=== PATIENT | male | born 1965 | race Caucasian/White ===

== ENCOUNTER 2016-07-05 17:09 | Observation (INO) | payer OTHER ==
[2016-07-05] MEDS ORDERED: Sodium Chloride 0.9% 10 ML Syringe FLUSH PRN (17:25)
[2016-07-05] MEDS ORDERED: Aspirin 81 MG Tab.Chew PO ONE (17:25)
[2016-07-05] MEDS ORDERED: Sodium Chloride 0.9% 2.5 ML Syringe FLUSH PRN (17:25)
--- NOTE | 2016-07-05 17:28 | EDM.PDOC ---
ED HPI GENERAL MEDICAL PROBLEM - General Chief Complaint: Chest Pain Stated Complaint: CHEST PAIN Time Seen by Provider: 07/05/16 17:18 - History of Present Illness INITIAL COMMENTS - FREE TEXT/NARRATIVE: HISTORY AND PHYSICAL: History of present illness: Patient's age 50-year-old white male with history of hypertension and is on no current medications who presents with a concern of left hemiparesthesia he states he is not feeding well at work he went home and went to sleep and awoke with numbness and tingling to the left side of his body he states the numbness has improved significantly he still does have some tingling he also complained of some vague chest discomfort without associated shortness of breath nausea vomiting palpitations or diaphoresis. He denies history of CVA or [place] denies diabetes or Review of systems: As per history of present illness and below otherwise all systems reviewed and negative. Past medical history: As per history of present illness and as reviewed below otherwise noncontributory. Surgical history: As per history of present illness and as reviewed below otherwise noncontributory. Social history: No reported history of drug or alcohol abuse. Family history: As per history of present illness and as reviewed below otherwise noncontributory. Physical exam: HEENT: Atraumatic, normocephalic, pupils reactive, negative for conjunctival pallor or scleral icterus, mucous membranes moist, throat clear, neck supple, nontender, trachea midline. Lungs: Clear to auscultation, breath sounds equal bilaterally, chest nontender. Heart: S1S2, regular, negative for clicks, rubs, or JVD. Abdomen: Soft, nondistended, nontender. Negative for masses or hepatosplenomegaly. Negative for costovertebral tenderness. Pelvis: Stable nontender. Genitourinary: Deferred. Rectal: Deferred. Extremities: Atraumatic, negative for cords or calf pain. Neurovascular unremarkable. Neuro: Awake, alert, oriented. Cranial nerves II through XII unremarkable. Cerebellum unremarkable. Motor and sensory unremarkable throughout. Exam nonfocal. Diagnostics: CBC CMP PT/INR troponin chest x-ray and EKG CT brain Therapeutics: IV O2 monitor aspirin 324 mg by mouth Impression: #1 left hemiparesthesia #2 atypical chest pain Definitive disposition and diagnosis as appropriate pending reevaluation and review of above. - Related Data Allergies Allergy/AdvReac Type Severity Reaction Status Date / Time No Known Allergies Allergy Verified 07/05/16 18:05 Home Meds: Home Meds . [No Known Home Meds] 07/05/16 [History] Past Medical History - Past Health History Medical/Surgical History: Denies Medical/Surgical History HEENT History: Reports: None Cardiovascular History: Reports: None Respiratory History: Reports: None Gastrointestinal History: Reports: None Genitourinary History: Reports: None Other Musculoskeletal History: hx carpal tunnel release Neurological History: Reports: None Psychiatric History: Reports: None Endocrine/Metabolic History: Reports: Obesity/BMI 30+ Hematologic History: Reports: None Immunologic History: Reports: None Oncologic (Cancer) History: Reports: None Dermatologic History: Reports: None - Infectious Disease History Infectious Disease History: - Past Surgical History Head Surgeries/Procedures: Reports: None Social & Family History - Tobacco Use Smoking Status *Q: Never Smoker Second Hand Smoke Exposure: No - Recreational Drug Use Recreational Drug Use: No Drug Use in Last 12 Months: No ED ROS GENERAL - Review of Systems Review Of Systems: ROS reveals no pertinent complaints other than HPI. ED EXAM, GENERAL - Physical Exam Exam: See Below (See dictation) Course - Vital Signs Last Recorded V/S: Last Vital Signs Temp 37.0 C 07/05/16 19:12 Pulse 83 07/05/16 19:12 Resp 20 07/05/16 19:12 BP 146/81 H 07/05/16 19:16 Pulse Ox 93 L 07/05/16 19:12 - Orders/Labs/Meds Orders: Active Orders 24 hr Category Date Time Status Cardiac Monitoring [RC] . DIRECTED Care 07/05/16 17:21 Active EKG Documentation Completion [RC] STAT Care 07/05/16 17:21 Active Oxygen Therapy, ED [RC] ASDIRECTED Care 07/05/16 17:21 Active Pulse Oximetry [RC] ASDIRECTED Care 07/05/16 17:21 Active Chest 1V Frontal [CR] Stat Exams 07/05/16 17:25 Taken Head wo Cont [CT] Stat Exams 07/05/16 17:25 Taken Sodium Chloride 0.9% [Normal Saline] 1,000 ml Med 07/05/16 17:30 Active IV STAT Sodium Chloride 0.9% [Saline Flush] Med 07/05/16 17:25 Active 10 ml FLUSH ASDIRECTED PRN Sodium Chloride 0.9% [Saline Flush] Med 07/05/16 17:25 Active 2.5 ml FLUSH ASDIRECTED PRN Saline Lock Insert [OM.PC] Stat Oth 07/05/16 17:21 Ordered Medication Orders Sodium Chloride (Normal Saline) 1,000 mls @ 125 mls/hr IV STAT [facility] Last Admin: 07/05/16 17:45 Dose: 125 mls/hr Sodium Chloride (Saline Flush) 10 ml FLUSH ASDIRECTED PRN PRN Reason: Keep Vein Open Sodium Chloride (Saline Flush) 2.5 ml FLUSH ASDIRECTED PRN PRN Reason: Keep Vein Open Labs: Laboratory Tests 07/05/16 07/05/16 07/05/16 Range/Units 17:45 17:45 17:45 WBC 9.75 (4.0-11.0) K/uL RBC 5.48 (4.50-5.90) M/uL Hgb 16.1 (13.0-17.0) g/dL Hct 48.9 (38.0-50.0) % MCV 89.2 (80.0-98.0) fL MCH 29.4 (27.0-32.0) pg MCHC 32.9 (31.0-37.0) g/dL RDW Std Deviation 45.2 (28.0-62.0) fl RDW Coeff of Perico 14 (11.0-15.0) % Plt Count 280 (150-400) K/uL MPV 9.00 (7.40-12.00) fL Neut % (Auto) 54.9 (48.0-80.0) % Lymph % (Auto) 30.8 (16.0-40.0) % Chambers % (Auto) 9.9 (0.0-15.0) % Eos % (Auto) 4.0 (0.0-7.0) % Baso % (Auto) 0.4 (0.0-1.5) % Neut # (Auto) 5.4 (1.4-5.7) K/uL Lymph # (Auto) 3.0 H (0.6-2.4) K/uL Chambers # (Auto) 1.0 H (0.0-0.8) K/uL Eos # (Auto) 0.4 (0.0-0.7) K/uL Baso # (Auto) 0.0 (0.0-0.1) K/uL Nucleated RBC % 0.0 /100WBC Nucleated RBCs # 0 K/uL INR 0.98 (0.86-1.11) Sodium 140 (136-146) mmol/L Potassium 4.1 (3.5-5.1) mmol/L Chloride 108 (98-110) mmol/L Carbon Dioxide 24 (21-31) mmol/L BUN 13 (6.0-23.0) mg/dL Creatinine 0.9 (0.6-1.5) mg/dL Est Cr Clr Drug Dosing 103.64 mL/min Estimated GFR (MDRD) > 60.0 ml/min Glucose 80 (60-110) mg/dL Calcium 8.8 (8.8-10.8) mg/dL Total Bilirubin 0.4 (0.1-1.5) mg/dL AST 33 (5-40) IU/L ALT 42 (8-54) IU/L Alkaline Phosphatase 67 (40-150) Troponin I (0.0-0.29) NG/ML Total Protein 7.5 (6.0-8.0) g/dL Albumin 3.8 (3.5-5.0) g/dL Globulin 3.7 H (2.0-3.5) g/dL Albumin/Globulin Ratio 1.0 L (1.3-2.8) 07/05/16 Range/Units 17:45 WBC (4.0-11.0) K/uL RBC (4.50-5.90) M/uL Hgb (13.0-17.0) g/dL Hct (38.0-50.0) % MCV (80.0-98.0) fL MCH (27.0-32.0) pg MCHC (31.0-37.0) g/dL RDW Std Deviation (28.0-62.0) fl RDW Coeff of Perico (11.0-15.0) % Plt Count (150-400) K/uL MPV (7.40-12.00) fL Neut % (Auto) (48.0-80.0) % Lymph % (Auto) (16.0-40.0) % Chambers % (Auto) (0.0-15.0) % Eos % (Auto) (0.0-7.0) % Baso % (Auto) (0.0-1.5) % Neut # (Auto) (1.4-5.7) K/uL Lymph # (Auto) (0.6-2.4) K/uL Chambers # (Auto) (0.0-0.8) K/uL Eos # (Auto) (0.0-0.7) K/uL Baso # (Auto) (0.0-0.1) K/uL Nucleated RBC % /100WBC Nucleated RBCs # K/uL INR (0.86-1.11) Sodium (136-146) mmol/L Potassium (3.5-5.1) mmol/L Chloride (98-110) mmol/L Carbon Dioxide (21-31) mmol/L BUN (6.0-23.0) mg/dL Creatinine (0.6-1.5) mg/dL Est Cr Clr Drug Dosing mL/min Estimated GFR (MDRD) ml/min Glucose (60-110) mg/dL Calcium (8.8-10.8) mg/dL Total Bilirubin (0.1-1.5) mg/dL AST (5-40) IU/L ALT (8-54) IU/L Alkaline Phosphatase (40-150) Troponin I < 0.10 (0.0-0.29) NG/ML Total Protein (6.0-8.0) g/dL Albumin (3.5-5.0) g/dL Globulin (2.0-3.5) g/dL Albumin/Globulin Ratio (1.3-2.8) Meds: Medications Generic Name Dose Route Start Last Admin Trade Name Freq PRN Reason Stop Dose Admin Sodium Chloride 1,000 mls @ 125 mls/hr 07/05/16 17:30 07/05/16 17:45 Normal Saline IV 125 mls/hr STAT [facility] Administration Sodium Chloride 10 ml 07/05/16 17:25 Saline Flush FLUSH ASDIRECTED PRN Keep Vein Open Sodium Chloride 2.5 ml 07/05/16 17:25 Saline Flush FLUSH ASDIRECTED PRN Keep Vein Open Discontinued Medications Generic Name Dose Route Start Last Admin Trade Name Freq PRN Reason Stop Dose Admin Aspirin 324 mg 07/05/16 17:25 07/05/16 17:53 Aspirin PO 07/05/16 17:26 324 mg ONETIME ONE Administration Departure - Departure Time of Disposition: 19:22 Disposition: Home, Self-Care 01 Condition: good Clinical Impression: Paresthesia, Atypical chest pain Forms: ED Department Discharge - My Orders Last 24 Hours: My Active Orders 07/05/16 17:21 Cardiac Monitoring [RC] . DIRECTED EKG Documentation Completion [RC] STAT Oxygen Therapy, ED [RC] ASDIRECTED Pulse Oximetry [RC] ASDIRECTED Saline Lock Insert [OM.PC] Stat 07/05/16 17:25 Chest 1V Frontal [CR] Stat Head wo Cont [CT] Stat Sodium Chloride 0.9% [Saline Flush] 10 ml FLUSH ASDIRECTED PRN Sodium Chloride 0.9% [Saline Flush] 2.5 ml FLUSH ASDIRECTED PRN 07/05/16 17:30 Sodium Chloride 0.9% [Normal Saline] 1,000 ml IV STAT - Assessment/Plan Last 24 Hours: My Active Orders 07/05/16 17:21 Cardiac Monitoring [RC] . DIRECTED EKG Documentation Completion [RC] STAT Oxygen Therapy, ED [RC] ASDIRECTED Pulse Oximetry [RC] ASDIRECTED Saline Lock Insert [OM.PC] Stat 07/05/16 17:25 Chest 1V Frontal [CR] Stat Head wo Cont [CT] Stat Sodium Chloride 0.9% [Saline Flush] 10 ml FLUSH ASDIRECTED PRN Sodium Chloride 0.9% [Saline Flush] 2.5 ml FLUSH ASDIRECTED PRN 07/05/16 17:30 Sodium Chloride 0.9% [Normal Saline] 1,000 ml IV STAT
[2016-07-05] MEDS ORDERED: Sodium Chloride 0.9% 1,000 ML IV SCH (17:30)
[2016-07-05 18:31] LABS: CHLORIDE,CL 108 mmol/L (98-110); SODIUM,NA 140 mmol/L (136-146)
[2016-07-05] MEDS ORDERED: Acetaminophen 325 MG Tab PO PRN (20:10)
--- NOTE | 2016-07-05 20:37 | PCM.HP ---
H&P History of Present Illness - General Date of Service: 07/05/16 Admit Problem/Dx: Admission Diagnosis/Problem Admission Diagnosis/Problem Paresthesia Source of Information: Patient History Limitations: Reports: No limitations - History of Present Illness Initial Comments - Free Text/Narative: feeling sluggish and fatigued several days left work early because of squeezing precordaial chest pain and numbness and tingling L arm and somewhat in L leg as well. No weakness nausea sweats Onset of Symptoms: Reports: today, gradual Duration of Symptoms: Reports: Hour(s): Location: Reports: chest, upper extremity, left Quality: Reports: Pressure, Other (numbness l side) Severity: moderate Improves with: Reports: None Worsens with: Reports: None Context: Reports: other (denies unusual effort or stress) Associated Symptoms: Reports: no other symptoms Left Chest/Arm Pain Score (Numeric/FACES): 8 - Related Data Allergies/Adverse Reactions: Allergies Allergy/AdvReac Type Severity Reaction Status Date / Time atorvastatin Allergy Rash Verified 07/05/16 20:27 cephalexin [From Keflex] Allergy Hives Verified 07/05/16 20:24 propranolol [From Inderal [place]] Allergy Rash Verified 07/05/16 20:26 Home Medications: Home Meds . [No Known Home Meds] 07/05/16 [History] Past Medical History - Past Health History Medical/Surgical History: Denies Medical/Surgical History HEENT History: Reports: None Cardiovascular History: Reports: None, Hypertension Respiratory History: Reports: None Gastrointestinal History: Reports: None Genitourinary History: Reports: None Musculoskeletal History: Reports: Fracture Other Musculoskeletal History: hx carpal tunnel release Neurological History: Reports: None Psychiatric History: Reports: None Endocrine/Metabolic History: Reports: Obesity/BMI 30+ Hematologic History: Reports: None Immunologic History: Reports: None Oncologic (Cancer) History: Reports: None Dermatologic History: Reports: None - Infectious Disease History Infectious Disease History: - Past Surgical History Head Surgeries/Procedures: Reports: None Social & Family History - Family History Family Medical History: Noncontributory Neurological: Reports: CVA, TIA Endocrine/Metabolic: Reports: Diabetes, type I (mother treated with tPA for stroke and is ok), Diabetes, type II, Hyperthyroidism - Tobacco Use Smoking Status *Q: Never Smoker Second Hand Smoke Exposure: No - Recreational Drug Use Recreational Drug Use: No Drug Use in Last 12 Months: No H&P Review of Systems - Review of Systems: Review Of Systems: See Below General: Reports: no symptoms HEENT: Reports: no symptoms Pulmonary: Reports: No Symptoms Cardiovascular: Reports: no symptoms, chest pain Gastrointestinal: Reports: No symptoms Genitourinary: Reports: no symptoms Musculoskeletal: Reports: no symptoms Skin: Reports: no symptoms Psychiatric: Reports: no symptoms Neurological: Reports: Paresthesia Hematologic/Lymphatic: Reports: no symptoms Immunologic: Reports: no symptoms Exam - Exam Exam: See Below - Vital Signs Vital Signs: Last Vital Signs Temp 37.0 C 07/05/16 19:12 Pulse 83 07/05/16 19:12 Resp 20 07/05/16 19:12 BP 146/81 H 07/05/16 19:16 Pulse Ox 93 L 07/05/16 19:12 Weight: 168 kg - Exam General: alert HEENT: Posterior pharynx clear (small pharyngeal opening) Neck: other (very fleshy, nothing visible palpable or audible) Lungs: Decreased breath sounds Cardiovascular: regular rate Abdomen: normal bowel sounds, other (morbid obesity) (Male) Exam: Deferred Rectal (Males) Exam: Deferred Back Exam: normal inspection Extremities: other (large but non-pitting shins) Skin: warm, dry Neurological: other (speech clear, face symmetric moves limbs not formally tested further) Neuro Extensive - Mental Status: alert, oriented x3 Psychiatric: normal affect - Patient Data Result Diagrams: 07/05/16 17:45 07/05/16 17:45 *Q Meaningful Use (ADM) - VTE *Q VTE Criteria *Q: - VTE Risk Assess *Q Each Risk Factor Represents 1 Point: Obesity (BMI greater than 30), Abnormal Pulmonary Function (COPD) Total Score 1 Point Risk Factors: 2 - Stroke *Q Stroke Criteria *Q: - AMI *Q AMI Criteria *Q: Problem List Initiated/Reviewed/Updated: Yes Orders Last 24hrs: Active Orders 24 hr Category Date Time Status Patient Status [ADT] Routine ADT 07/05/16 20:10 Active Blood Glucose Check, Bedside [RC] BIDMEALS Care 07/05/16 20:10 Active Cardiac Monitoring [RC] CONTINUOUS Care 07/05/16 20:12 Active EKG Documentation Completion [RC] DAILY Care 07/05/16 20:10 Active Oxygen Therapy [RC] PRN Care 07/05/16 20:10 Active Pulse Oximetry [RC] CONTINUOUS Care 07/05/16 20:12 Active VTE/DVT Education [RC] PER UNIT ROUTINE Care 07/05/16 20:10 Active Vital Signs [RC] Q4H Care 07/05/16 20:10 Active LIPID PANEL [CHEM] Routine Lab 07/05/16 20:22 Ordered TROPONIN I [CHEM] DAILY Lab 07/05/16 20:15 Ordered Acetaminophen [Tylenol] Med 07/05/16 20:10 Active 650 mg PO Q4H PRN Metoprolol Tartrate [Lopressor] Med 07/05/16 21:00 Ordered 25 mg PO Q12HR Rosuvastatin [Crestor] Med 07/05/16 21:00 Ordered 10 mg PO BEDTIME Resuscitation Status Routine Resus Stat 07/05/16 20:10 Ordered Medication Orders Acetaminophen (Tylenol) 650 mg PO Q4H PRN PRN Reason: Pain (Mild 1-3)/fever Sodium Chloride (Normal Saline) 1,000 mls @ 125 mls/hr IV STAT [facility] Last Admin: 07/05/16 17:45 Dose: 125 mls/hr Metoprolol Tartrate (Lopressor) 25 mg PO Q12HR [facility] Rosuvastatin Calcium (Crestor) 10 mg PO BEDTIME [facility] Sodium Chloride (Saline Flush) 10 ml FLUSH ASDIRECTED PRN PRN Reason: Keep Vein Open Sodium Chloride (Saline Flush) 2.5 ml FLUSH ASDIRECTED PRN PRN Reason: Keep Vein Open Assessment/Plan Comment:: add prophyllactic beta shahriar and statin to ASA already given. Check further troponins and ECGs Needs sleep apnea work up. will monitor pulse ox here
[2016-07-05] MEDS: Metoprolol Tartrate 25 MG Tab PO SCH (20:42)
[2016-07-05] MEDS ORDERED: Rosuvastatin 10 MG Tab PO SCH (21:00)
[2016-07-06] MEDS: Metoprolol Tartrate 25 MG Tab PO SCH (10:08)
--- NOTE | 2016-07-06 11:22 | PCM.PN ---
- General Info Date of Service: 07/06/16 Functional Status: Reports: other (still has tingling face hand ) - Review of Systems HEENT: Reports: no symptoms Pulmonary: Reports: no symptoms Cardiovascular: Reports: No Symptoms Gastrointestinal: Reports: No symptoms Genitourinary: Reports: no symptoms Musculoskeletal: Reports: no symptoms Skin: Reports: no symptoms Neurological: Reports: No Symptoms Psychiatric: Reports: no symptoms - Patient Data Vitals - most recent: Last Vital Signs Temp 36.7 C 07/06/16 08:00 Pulse 80 07/06/16 10:08 Resp 16 07/06/16 08:00 BP 125/75 07/06/16 10:08 Pulse Ox 93 L 07/06/16 08:00 Weight - most recent: 168 kg I&O - last 24 hours: Intake & Output 07/05/16 07/06/16 07/06/16 22:59 06:59 14:59 Intake Total 1000 150 Output Total 350 Balance 1000 -200 Lab Results last 24 hrs: Laboratory Results - last 24 hr 07/05/16 07/05/16 07/06/16 Range/Units 20:28 20:34 02:45 POC Glucose 80 (60-110) mg/dL Troponin I < 0.10 < 0.10 (0.0-0.29) NG/ML 07/06/16 Range/Units 08:15 POC Glucose 97 (60-110) mg/dL Troponin I (0.0-0.29) NG/ML Med Orders - Current: Current Medications Acetaminophen (Tylenol) 650 mg PO Q4H PRN PRN Reason: Pain (Mild 1-3)/fever Metoprolol Tartrate (Lopressor) 25 mg PO Q12HR [facility] Last Admin: 07/06/16 10:08 Dose: 25 mg Rosuvastatin Calcium (Crestor) 10 mg PO BEDTIME [facility] Last Admin: 07/05/16 20:43 Dose: 10 mg Sodium Chloride (Saline Flush) 10 ml FLUSH ASDIRECTED PRN PRN Reason: Keep Vein Open Sodium Chloride (Saline Flush) 2.5 ml FLUSH ASDIRECTED PRN PRN Reason: Keep Vein Open Discontinued Medications Aspirin (Aspirin) 324 mg PO ONETIME ONE Stop: 07/05/16 17:26 Last Admin: 07/05/16 17:53 Dose: 324 mg Sodium Chloride (Normal Saline) 1,000 mls @ 125 mls/hr IV STAT [facility] Last Admin: 07/05/16 17:45 Dose: 125 mls/hr - My Orders Last 24 Hours: My Active Orders 07/05/16 20:10 Patient Status [ADT] Routine Blood Glucose Check, Bedside [RC] BIDMEALS Oxygen Therapy [RC] PRN Vital Signs [RC] Q4H Acetaminophen [Tylenol] 650 mg PO Q4H PRN Resuscitation Status Routine 07/05/16 20:12 Pulse Oximetry [RC] CONTINUOUS 07/05/16 20:33 Telemetry Monitoring [Cardiac Monitoring] [RC] Q8H 07/05/16 21:00 Metoprolol Tartrate [Lopressor] 25 mg PO Q12HR Rosuvastatin [Crestor] 10 mg PO BEDTIME 07/06/16 Breakfast Regular Diet [DIET] - Plan Plan:: add prophyllactic beta shahriar and statin to ASA already given. Check further troponins and ECGs Needs sleep apnea work up. will monitor pulse ox here
--- NOTE | 2016-07-06 11:29 | PCM.PN ---
- General Info Date of Service: 07/06/16 - Review of Systems General: Reports: Other (still has some tingling in hand and now mentions L face as well) HEENT: Reports: no symptoms Pulmonary: Reports: no symptoms Cardiovascular: Reports: No Symptoms Gastrointestinal: Reports: No symptoms Genitourinary: Reports: no symptoms Musculoskeletal: Reports: no symptoms Skin: Reports: no symptoms Neurological: Reports: No Symptoms Psychiatric: Reports: no symptoms - Patient Data Vitals - most recent: Last Vital Signs Temp 36.7 C 07/06/16 08:00 Pulse 80 07/06/16 10:08 Resp 16 07/06/16 08:00 BP 125/75 07/06/16 10:08 Pulse Ox 93 L 07/06/16 08:00 Weight - most recent: 168 kg I&O - last 24 hours: Intake & Output 07/05/16 07/06/16 07/06/16 22:59 06:59 14:59 Intake Total 1000 150 Output Total 350 Balance 1000 -200 Lab Results last 24 hrs: Laboratory Results - last 24 hr 07/05/16 07/05/16 07/06/16 Range/Units 20:28 20:34 02:45 POC Glucose 80 (60-110) mg/dL Troponin I < 0.10 < 0.10 (0.0-0.29) NG/ML 07/06/16 Range/Units 08:15 POC Glucose 97 (60-110) mg/dL Troponin I (0.0-0.29) NG/ML Med Orders - Current: Current Medications Acetaminophen (Tylenol) 650 mg PO Q4H PRN PRN Reason: Pain (Mild 1-3)/fever Metoprolol Tartrate (Lopressor) 25 mg PO Q12HR [facility] Last Admin: 07/06/16 10:08 Dose: 25 mg Rosuvastatin Calcium (Crestor) 10 mg PO BEDTIME [facility] Last Admin: 07/05/16 20:43 Dose: 10 mg Sodium Chloride (Saline Flush) 10 ml FLUSH ASDIRECTED PRN PRN Reason: Keep Vein Open Sodium Chloride (Saline Flush) 2.5 ml FLUSH ASDIRECTED PRN PRN Reason: Keep Vein Open Discontinued Medications Aspirin (Aspirin) 324 mg PO ONETIME ONE Stop: 07/05/16 17:26 Last Admin: 07/05/16 17:53 Dose: 324 mg Sodium Chloride (Normal Saline) 1,000 mls @ 125 mls/hr IV STAT [facility] Last Admin: 07/05/16 17:45 Dose: 125 mls/hr - Exam General: alert, oriented HEENT: Pupils equal, Pupils reactive, EOMI, Mucous membr. moist/pink Neck: supple, other (pulses very poorly felt, no bruit heard) Lungs: Clear to auscultation, Normal respiratory effort Cardiovascular: Regular Rate, Regular Rhythm Abdomen: bowel sounds present, soft, no tenderness, no distension (Male) Exam: Deferred, Other Back Exam: normal inspection Skin: warm, dry, intact Neurological: no new focal deficit Psy/Mental Status: alert, normal affect, normal mood - Problem List & Annotations (1) Paresthesia SNOMED Code(s): 70263704 Code(s): R20.2 - PARESTHESIA OF SKIN Status: Acute Priority: High Current Visit: Yes Onset Date: ~07/05/16 - Problem List Review Problem List Initiated/Reviewed/Updated: Yes - My Orders Last 24 Hours: My Active Orders 07/05/16 20:10 Patient Status [ADT] Routine Blood Glucose Check, Bedside [RC] BIDMEALS Oxygen Therapy [RC] PRN Vital Signs [RC] Q4H Acetaminophen [Tylenol] 650 mg PO Q4H PRN Resuscitation Status Routine 07/05/16 20:12 Pulse Oximetry [RC] CONTINUOUS 07/05/16 20:33 Telemetry Monitoring [Cardiac Monitoring] [RC] Q8H 07/05/16 21:00 Metoprolol Tartrate [Lopressor] 25 mg PO Q12HR Rosuvastatin [Crestor] 10 mg PO BEDTIME 07/06/16 Breakfast Regular Diet [DIET] - Assessment Assessment:: persistent L side symptons more suggestive of TIA Will order carotid US - Plan Plan:: add prophyllactic beta shahriar and statin to ASA already given. Check further troponins and ECGs Needs sleep apnea work up. will monitor pulse ox here
--- NOTE | 2016-07-06 14:53 | CT ---
EXAM DATE: 07/05/16 PATIENT'S AGE: 50 Patient: ARTURO HOU Facility: [place], [place] Site . Site : 1965 Study: CT Head [id number] 5:53:55 PM Ordering Physician: Jadyn Mahan Final Report: INDICATION: Pain and dizziness TECHNIQUE: CT head without contrast. COMPARISON: None FINDINGS: CSF spaces: Within normal limits for age. Brain parenchyma: The lyons-white differentiation is normal. No sign of mass, hemorrhage, or midline shift. Skull base and calvarium: The visualized paranasal sinuses and mastoid air cells demonstrate no acute or significant findings. The visualized orbits are grossly unremarkable. No skull fractures. IMPRESSION: Unremarkable noncontrast head CT. Dictated by Zamzam Armendariz MD @ Jul 05 2016 6:14PM (Electronic Signature) Report Signed by Proxy and Original Signed Document filed in the Medical Record. [facility] INSANEJeanine
--- NOTE | 2016-07-06 15:00 | CR ---
EXAM DATE: 07/05/16 PATIENT'S AGE: 50 Patient: ARTURO HOU Facility: [place], [place] Site . Site : 1965 Study: XRay Chest [id number]/30/2017 6:22:39 PM Ordering Physician: Jadyn Mahan Final Report: Indication: Chest pain and shortness of breath Technique: Chest 1 view Comparison: 11/28/2015. Findings/Impression: Cardiovascular and mediastinum: Heart size and vasculature are normal in caliber and appearance. Mediastinum is within normal limits. Lungs and pleural space: Mildly elevated left hemidiaphragm. Mild left basilar subsegmental atelectasis or scarring. No gross consolidation or pleural effusions. Bones and soft tissues: No significant change. Dictated by Ehsan Nice MD @ 07/05/2016 6:57:32 PM Dictated by: Ehsan Nice MD @ 07/05/2016 18:57:37 (Electronic Signature) Report Signed by Proxy and Original Signed Document filed in the Medical Record. [facility]
--- NOTE | 2016-07-06 16:52 | US ---
EXAMINATION: Carotid US with lyons scale and duplex imaging. HISTORY: Persistent left-sided numbness FINDINGS: Ultrasound examination of bilateral cervical carotid arteries was performed using lyons scale and dup duy imaging. Minimal atheromatous disease noted within the carotid arteries. The vertebral arterie s were not well imaged secondary to body habitus. These are the peak velocities in cm per second (systole), right and left respectively, by a comma: CCA (common carotid artery) - 97, 99 ICA (internal carotid artery) - 114, 93 ECA (External carotid artery) - 51, 21 ICA/CCA systolic ratio Right - 1.2 Left - 1.0 IMPRESSION: 1. No significant elevated velocities within the carotid arteries bilaterally to suggest greater chencho n 50% stenosis. 2. The vertebral arteries were not well imaged secondary to body habitus.
[2016-07-06 17:29] VITALS: BP 125/56
--- NOTE | 2016-07-06 18:55 | PCM.DCSUM1 ---
Discharge Summary - Hospital Course Free Text/Narrative:: admitted with increasing fatigue, eventually chest pressure and ttingling numbness L arm and also face and leg - Discharge Data Discharge Date: 07/06/16 Discharge Disposition: Home, Self-Care 01 Condition: Good - Discharge Diagnosis/Problem(s) (1) Paresthesia SNOMED Code(s): 99870472 ICD Code: R20.2 - PARESTHESIA OF SKIN Status: Acute Priority: High Current Visit: Yes Onset Date: ~07/05/16 - Patient Summary/Data Operative Procedure(s) Performed: R shoulder arthroscopy with. 1. SAD. 2. biceps tenotomy. 3. RTCR Consults: Consultations 07/06/16 15:49 Consult to Physician [CONS] Routine Cardiology Recommended Follow-up Testing/Procedures: cardiac stress test with Dr Letty Merrill study - Patient Instructions Diet: Heart Healthy Diet Activity: No Strenuous Activities Driving: Do Not Drive Showering/Bathing: May Shower - Discharge Plan Prescriptions/Med Rec: Aspirin 81 mg PO BRK #120 tab.chew Home Medications: Home Meds Aspirin 81 mg PO BRK #120 tab.chew 07/06/16 [Rx] Forms: ED Department Discharge Referrals: Jann Schafer MD [Ordering Only Provider] - 07/13/16 9:00 am - Discharge Summary/Plan Comment DC Time >30 min.: No - Patient Data Vitals - Most Recent: Last Vital Signs Temp 37.1 C 07/06/16 16:00 Pulse 73 07/06/16 16:00 Resp 16 07/06/16 16:00 BP 125/56 L 07/06/16 16:00 Pulse Ox 95 07/06/16 16:00 Weight - Most Recent: 168 kg I&O - Last 24 hours: Intake & Output 07/06/16 07/06/16 07/06/16 06:59 14:59 22:59 Intake Total 150 Output Total 350 Balance -200 Lab Results - Last 24 hrs: Laboratory Results - last 24 hr 07/05/16 07/05/16 07/06/16 Range/Units 20:28 20:34 02:45 POC Glucose 80 (60-110) mg/dL Troponin I < 0.10 < 0.10 (0.0-0.29) NG/ML 07/06/16 07/06/16 07/06/16 Range/Units 08:15 11:18 17:18 POC Glucose 97 99 107 (60-110) mg/dL Troponin I (0.0-0.29) NG/ML Med Orders - Current: Current Medications Acetaminophen (Tylenol) 650 mg PO Q4H PRN PRN Reason: Pain (Mild 1-3)/fever Metoprolol Tartrate (Lopressor) 25 mg PO Q12HR [facility]OR Last Admin: 07/06/16 10:08 Dose: 25 mg Rosuvastatin Calcium (Crestor) 10 mg PO BEDTIME [facility] Last Admin: 07/05/16 20:43 Dose: 10 mg Sodium Chloride (Saline Flush) 10 ml FLUSH ASDIRECTED PRN PRN Reason: Keep Vein Open Sodium Chloride (Saline Flush) 2.5 ml FLUSH ASDIRECTED PRN PRN Reason: Keep Vein Open Discontinued Medications Aspirin (Aspirin) 324 mg PO ONETIME ONE Stop: 07/05/16 17:26 Last Admin: 07/05/16 17:53 Dose: 324 mg Sodium Chloride (Normal Saline) 1,000 mls @ 125 mls/hr IV STAT [facility] Last Admin: 07/05/16 17:45 Dose: 125 mls/hr *Q Meaningful Use (DIS) - VTE *Q VTE Criteria *Q: - Stroke *Q Stroke Criteria *Q: - AMI *Q AMI Criteria *Q:
--- NOTE | 2016-07-07 00:31 | CONS ---
DATE OF CONSULTATION: DATE OF : 1965 PRIMARY CARE PHYSICIAN: None PCP REASON FOR CONSULTATION: Chest pain. HISTORY OF PRESENT ILLNESS: This is a 50-year-old male, morbid obesity, presented to the emergency room because of the chest pain. It started when he was late watching TV on the left- sided chest wall, radiating to his shoulder and his arm, and also his left neck and left face. He feels a feeling tingling his left arm as well, lasting for 2 to 3 hours. The pain that he described was more like squeezing in nature. He had a similar episode about less than 10, like one week prior when he was resting as well. No shortness of breath. No sweating. No heart racing, and then he came to the emergency room. Troponin has been negative so far. EKG was done and did not show any changes. PAST MEDICAL HISTORY: No history of hypertension, diabetes, or high cholesterol. FAMILY HISTORY: His mother had a history of diabetes, heart attack, and also a history of stroke. ALLERGIES: He is allergic to atorvastatin, cephalexin, and propranolol . CURRENT MEDICATIONS: Including metoprolol 25 q.12 hours, Crestor 10 mg at bedtime, and aspirin 324 was given. PHYSICAL EXAMINATION: VITAL SIGNS: Blood pressure 158/88, coming down to 125/75; heart rate of 82; temperature 36.8; and O2 saturation 97 on room air. HEENT: Not pale, no jaundice. NECK: No JVD. HEART: Normal S1, S2. No murmur. LUNGS: Clear. No crackles. No wheezing. ABDOMEN: Soft, nontender. No hepatosplenomegaly. No rebound tenderness. EXTREMITIES: Legs, no edema. Good dorsalis pedis. INVESTIGATION: EKG on 07/05 at 5:00 p.m. shows sinus rhythm. Heart rate of 85, CT interval 152, QTc 425, QRS duration 90. Laboratories shows WBC 9.7, hematocrit 48, hemoglobin 16, platelet 280. INR 0.9. Sodium 140, potassium 4.1, chloride 108, bicarb 24, BUN 13, creatinine 0.9. GFR more than 60. Troponin is less than 0.1, three times. Triglyceride 117, total cholesterol 182, LDL 126, and HDL 37. Carotid ultrasound; no significant carotid stenosis. Head CT is unremarkable. ASSESSMENT AND PLAN: This is a 50-year-old male with history of morbid obesity, presented due to chest pain. Chest pain sounds like somewhat non-cardiac angina. I totally agree with metoprolol as also Crestor, and I also would recommend and agree with the hospitalist for exercise nuclear test and also I will recommend to do echocardiogram and then we can schedule it as an outpatient. GREGOR / SHERIDAN /[id number]
== END 2016-07-06 20:15 | disposition home or self-care (01) ==
LOC: MW.ED 17:09 → MW.MS 19:25
PROVIDERS: ADMIT Internal Medicine; ATTEND Internal Medicine
DX: R07.2 Precordial pain (principal); R20.2 Paresthesia of skin; I10 Essential (primary) hypertension; E66.9 Obesity, unspecified; Z82.49 Family history of ischemic heart disease and other diseases of the circulatory system; Z88.1 Allergy status to other antibiotic agents; Z88.8 Allergy status to other drugs, medicaments and biological substances; Z79.899 Other long term (current) drug therapy
CPT/HCPCS: 36415; 70450; 71010; 80053; 80061; 82962; 84484; 85025; 85610; 93880; 96360; 96361; 99285; A9270; G0378; J7040; 99284

== ENCOUNTER → 2016-08-15 | Outpatient (CLI) | payer OTHER ==
--- NOTE | 2016-08-15 12:50 | NM ---
EXAMINATION: Nuclear medicine myocardial perfusion study with exercise stress test. HISTORY: Chest pain. PROCEDURE: Patient exercised according to Jorge Luis protocol for 3 minutes and 34 seconds and achieved maximal hear t rate of 160 beats per minute. Adequate exercise. Following intravenous administration of 11 and 34 mCi of technetium 99m sestamibi, stress and rest SPECT images including gating imaging was performed. FINDINGS: Stress and rest myocardial SPECT images demonstrates uniform tracer uptake throughout the left ventr icular myocardium. No fixed defect identified. Review of gated images demonstrates normal wall motion, contractility and wall thickening. The left ventricular ejection fraction is 63 %. The left ventricular chamber size is normal. IMPRESSION: 1. No evidence of myocardial ischemia. 2. Normal ventricular chamber size and function with ejection fraction of 63 %.
--- NOTE | 2016-08-15 14:29 | PCM.PRNOTE ---
- Free Text/Narrative Note: Procedure: Cardiolite exercise stress test Resting blood pressure 142/86, pulse 91 Patient exercised per Jorge Luis protocol 3 minutes and 34 seconds and achieved a maximum heart rate 160 beats per minute which was 93% of age-predicted maximum heart rate. Mets: 4.6. Double product [id number] Resting EKG revealed normal sinus rhythm with isolated T-wave inversion in lead 3 With exertion, no significant ST-T changes were noted. Test stopped at target heart rate. No complaints of chest pain during exercise or recovery. Impression: #1. Negative stress test for ischemic ST-T changes #2. Poor exercise tolerance #3. Cardiolite portion of test pending
== END ==
LOC: MW.NM 07:03
PROVIDERS: ATTEND Student in an Organized Health Care Education/Training Program
DX: R07.9 Chest pain, unspecified (principal); R06.02 Shortness of breath
CPT/HCPCS: 78452; 93017; A9500

== ENCOUNTER → 2016-08-29 | Outpatient (CLI) | payer OTHER | END | disposition home or self-care (01) | LOC: MW.RT 20:40 | PROVIDERS: ATTEND Student in an Organized Health Care Education/Training Program | DX: R07.9 Chest pain, unspecified (principal); R06.02 Shortness of breath | CPT/HCPCS: 95811 ==

== ENCOUNTER 2017-07-15 14:42 | Emergency (ER) | payer BC, OTHER ==
[2017-07-15] MEDS ORDERED: Sodium Chloride 0.9% 1,000 ML IV ONE (14:54)
[2017-07-15] MEDS ORDERED: Ondansetron 4 MG/2 ML SDV IVPUSH ONE (14:54)
--- NOTE | 2017-07-15 14:58 | EDM.PDOC ---
ED HPI GENERAL MEDICAL PROBLEM - General Chief Complaint: General Stated Complaint: POSSIBLE FLU Time Seen by Provider: 07/15/17 14:50 - History of Present Illness INITIAL COMMENTS - FREE TEXT/NARRATIVE: HISTORY AND PHYSICAL: History of present illness: Patient's 51-year-old white male presents with concern of vomiting decreased appetite and diarrhea over last 24-48 hours he has some generalized abdominal discomfort he denies fever chills he did not get influenza immunization this year he denies any sick contacts denies chest pain shortness of breath or other concern Review of systems: As per history of present illness and below otherwise all systems reviewed and negative. Past medical history: As per history of present illness and as reviewed below otherwise noncontributory. Surgical history: As per history of present illness and as reviewed below otherwise noncontributory. Social history: No reported history of drug or alcohol abuse. Family history: As per history of present illness and as reviewed below otherwise noncontributory. Physical exam: HEENT: Atraumatic, normocephalic, pupils reactive, negative for conjunctival pallor or scleral icterus, mucous membranes dry, throat clear, neck supple, nontender, trachea midline. Lungs: Clear to auscultation, breath sounds equal bilaterally, chest nontender. Heart: S1S2, regular, negative for clicks, rubs, or JVD. Abdomen: Soft, nondistended, no localized tenderness. Negative for masses or hepatosplenomegaly. Negative for costovertebral tenderness. Pelvis: Stable nontender. Genitourinary: Deferred. Rectal: Deferred. Extremities: Atraumatic, negative for cords or calf pain. Neurovascular unremarkable. Neuro: Awake, alert, oriented. Cranial nerves II through XII unremarkable. Cerebellum unremarkable. Motor and sensory unremarkable throughout. Exam nonfocal. Diagnostics: CBC CMP and lipase UA acute abdominal series with chest x-ray influenza screen Therapeutics: Normal saline 1 L bolus Zofran 4 mg IV Impression: #1 vomiting/diarrhea #2 abdominal pain #3 dehydration Definitive disposition and diagnosis as appropriate pending reevaluation and review of above. abdominal Pain Score (Numeric/FACES): 8 - Related Data Allergies Allergy/AdvReac Type Severity Reaction Status Date / Time atorvastatin Allergy Rash Verified 07/15/17 14:52 cephalexin [From Keflex] Allergy Hives Verified 07/15/17 15:46 propranolol [From Inderal LA] Allergy Rash Verified 07/15/17 14:52 Home Meds: Home Meds . [No Known Home Meds] 07/15/17 [History] Past Medical History - Past Health History Medical/Surgical History: Denies Medical/Surgical History HEENT History: Reports: None Cardiovascular History: Reports: None, Hypertension Respiratory History: Reports: None Gastrointestinal History: Reports: None Genitourinary History: Reports: None Musculoskeletal History: Reports: Fracture Other Musculoskeletal History: hx carpal tunnel release Neurological History: Reports: None Psychiatric History: Reports: None Endocrine/Metabolic History: Reports: Obesity/BMI 30+ Hematologic History: Reports: None Immunologic History: Reports: None Oncologic (Cancer) History: Reports: None Dermatologic History: Reports: None - Infectious Disease History Infectious Disease History: - Past Surgical History Head Surgeries/Procedures: Reports: None Social & Family History - Family History Family Medical History: Noncontributory Neurological: Reports: CVA, TIA Endocrine/Metabolic: Reports: Diabetes, Type I, Diabetes, type II, Hyperthyroidism - Tobacco Use Smoking Status *Q: Never Smoker Second Hand Smoke Exposure: No - Caffeine Use Caffeine Use: Reports: Coffee, Soda - Recreational Drug Use Recreational Drug Use: No Drug Use in Last 12 Months: No ED ROS GENERAL - Review of Systems Review Of Systems: ROS reveals no pertinent complaints other than HPI. ED EXAM, GENERAL - Physical Exam Exam: See Below (See dictation) Course - Vital Signs Last Recorded V/S: Last Vital Signs Temp 35.8 C 07/15/17 14:53 Pulse 95 07/15/17 14:53 Resp 18 07/15/17 14:53 BP 133/87 07/15/17 14:53 Pulse Ox 98 07/15/17 14:53 - Orders/Labs/Meds Orders: Active Orders 24 hr Category Date Time Status INFLUENZA A+B AG SCREEN [RM] Stat Lab 07/15/17 15:51 Ordered UA W/MICROSCOPIC [URIN] Stat Lab 07/15/17 16:55 Ordered Labs: Laboratory Tests 07/15/17 07/15/17 07/15/17 Range/Units 16:20 16:20 16:20 WBC 8.19 (4.0-11.0) K/uL RBC 5.60 (4.50-5.90) M/uL Hgb 16.4 (13.0-17.0) g/dL Hct 50.1 H (38.0-50.0) % MCV 89.5 (80.0-98.0) fL MCH 29.3 (27.0-32.0) pg MCHC 32.7 (31.0-37.0) g/dL RDW Std Deviation 46.4 (28.0-62.0) fl RDW Coeff of Perico 14 (11.0-15.0) % Plt Count 235 (150-400) K/uL MPV 9.10 (7.40-12.00) fL Neut % (Auto) 69.9 (48.0-80.0) % Lymph % (Auto) 18.8 (16.0-40.0) % [place] % (Auto) 11.0 (0.0-15.0) % Eos % (Auto) 0.2 (0.0-7.0) % Baso % (Auto) 0.1 (0.0-1.5) % Neut # (Auto) 5.7 (1.4-5.7) K/uL Lymph # (Auto) 1.5 (0.6-2.4) K/uL [place] # (Auto) 0.9 H (0.0-0.8) K/uL Eos # (Auto) 0.0 (0.0-0.7) K/uL Baso # (Auto) 0.0 (0.0-0.1) K/uL Nucleated RBC % 0.0 /100WBC Nucleated RBCs # 0 K/uL INR 1.12 Sodium 137 (136-148) mmol/L Potassium 3.5 (3.5-5.1) mmol/L Chloride 103 (98-107) mmol/L Carbon Dioxide 24.2 (21.0-32.0) mmol/L BUN 19 H (7.0-18.0) mg/dL Creatinine 1.1 (0.8-1.3) mg/dL Est Cr Clr Drug Dosing 83.88 mL/min Estimated GFR (MDRD) > 60.0 ml/min Glucose 114 H (74-106) mg/dL Calcium 8.0 L (8.5-10.1) mg/dL Total Bilirubin 0.5 (0.2-1.0) mg/dL AST 38 H (15-37) IU/L ALT 51 (14-63) IU/L Alkaline Phosphatase 57 (46-116) U/L Total Protein 7.3 (6.4-8.2) g/dL Albumin 3.1 L (3.4-5.0) g/dL Globulin 4.2 H (2.0-3.5) g/dL Albumin/Globulin Ratio 0.7 L (1.3-2.8) Lipase 72 L (73-393) U/L Meds: Medications Discontinued Medications Generic Name Dose Route Start Last Admin Trade Name Gustavo PRN Reason Stop Dose Admin Sodium Chloride 1,000 mls @ 999 mls/hr 07/15/17 14:54 07/15/17 15:45 Normal Saline IV 07/15/17 15:54 999 mls/hr STAT ONE Administration Ondansetron HCl 4 mg 07/15/17 14:54 07/15/17 15:45 Zofran IVPUSH 07/15/17 14:55 4 mg ONETIME ONE Administration Departure - Departure Time of Disposition: 17:27 Disposition: Home, Self-Care 01 Condition: Good Clinical Impression: Gastroenteritis, Dehydration - Discharge Information Referrals: PCP,None [Primary Care Provider] - Forms: ED Department Discharge Additional Instructions: The following information is given to patients seen in the emergency department who are being discharged to home. This information is to outline your options for follow-up care. We provide all patients seen in our emergency department with a follow-up referral. The need for follow-up, as well as the timing and circumstances, are variable depending upon the specifics of your emergency department visit. If you don't have a primary care physician on staff, we will provide you with a referral. We always advise you to contact your personal physician following an emergency department visit to inform them of the circumstance of the visit and for follow-up with them and/or the need for any referrals to a consulting specialist. The emergency department will also refer you to a specialist when appropriate. This referral assures that you have the opportunity for followup care with a specialist. All of these measure are taken in an effort to provide you with optimal care, which includes your followup. Under all circumstances we always encourage you to contact your private physician who remains a resource for coordinating your care. When calling for followup care, please make the office aware that this follow-up is from your recent emergency room visit. If for any reason you are refused follow-up, please contact the [facility] emergency department at and asked to speak to the emergency department charge nurse. [facility] [facility] [address] [place] [phone] Zofran as prescribed push fluids clear liquids as directed call schedule appointment with general medical clinic above return as needed as discussed[] - My Orders Last 24 Hours: My Active Orders 07/15/17 15:51 INFLUENZA A+B AG SCREEN [RM] Stat 07/15/17 16:55 UA W/MICROSCOPIC [URIN] Stat - Assessment/Plan Last 24 Hours: My Active Orders 07/15/17 15:51 INFLUENZA A+B AG SCREEN [RM] Stat 07/15/17 16:55 UA W/MICROSCOPIC [URIN] Stat
--- NOTE | 2017-07-15 16:19 | CR ---
EXAMINATION: Abdomen and chest HISTORY: Pain COMPARISON: CT dated 02/13/2017 TECHNIQUE: PA and chest and AP and upright views of the abdomen FINDINGS: Mild atelectasis and/or infiltrate noted within the left lung base. No pleural effusion or pneumothorax. Cardiomediastinal silhouette is normal. There is a moderate amount of gas noted within the colon. No dilated loops of small bowel. No organom egaly. No abnormal calcifications. Visualized osseous structures are grossly unremarkable. IMPRESSION: 1. Nonspecific bowel gas pattern with gas in the colon. No evidence for small bowel obstruction. 2. Mild atelectasis and/or infiltrate noted within the left lung base.
[2017-07-15 17:01] LABS: CHLORIDE,CL 103 mmol/L (98-107); SODIUM,NA 137 mmol/L (136-148)
[2017-07-15 18:06] VITALS: BP 136/71
== END 2017-07-15 17:37 | disposition home or self-care (01) ==
LOC: MW.ED 14:42
DX: K52.9 Noninfective gastroenteritis and colitis, unspecified (principal); I10 Essential (primary) hypertension; Z88.8 Allergy status to other drugs, medicaments and biological substances; Z88.1 Allergy status to other antibiotic agents
CPT/HCPCS: 36415; 74022; 80053; 81001; 83690; 85025; 85610; 87804; 96361; 96374; 99284; J2405; J7040; 99282